=== PATIENT | male | born 1940 | race Caucasian/White ===

== ENCOUNTER 2022-07-01 19:38 | Inpatient (IN) | payer OTHER, MEDICARE ==
--- OUTSIDE RECORDS SUMMARY | 2022-07-01 19:43 | XMS REPORT | Continuity of Care Document ---
:1940 Author Organization [facility] t Address [address] [place] [address] Care Team Providers Name Role Phone Referral, Self Primary Care Physician Unavailable John Galindo Attending Clinician Unavailable SISSON_C Attending Clinician Unavailable Filippo DELVALLE, Jose Alberto Perkins Attending Clinician [phone] Sal DELVALLE, Arsen Damon Attending Clinician [phone] KNOW, DOES_NOT Admitting Clinician Unavailable SISSON_C Admitting Clinician Unavailable Payers Payer Name Policy Type Policy Number Effective Date Expiration Date Alyse krishna MEDICARE PART A AND [id number] 1997 B 00:00:00 MEDICARE B-[place]: [id number] 1997 [employer] 00:00:00 [facility] [id number] 2021 OPTIONS (MEDICARE 00:00:00 SUPPLEMENT) Problems Condition Condition Condition Status Onset Resolution Last Treating Co mments Source Name Details Category Date Date Treatment Clinician Date Aneurysm Aneurysm Disease Active 2016-05 [facility] artery, artery, 0-26 [facility] popliteal popliteal 00:00: of 00 Medicin e Chronic Chronic Disease Active 2016-05 [facility] obstructiv obstructiv 0-26 [facility] e e 00:00: of pulmonary pulmonary 00 Medi adonis disease disease e PAD PAD Disease Active [facility] (periphera (periphera 4-24 Co llege l artery l artery 00:00: of disease) disease) 00 Medici n (HCCode) (HCCode) e 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 4-24 College aneurysm aneurysm 00:00: of 00 Medicin e S/P S/P Disease Active [facility] femoral-po femoral-po 4-24 [facility] l[facility] pliteal pliteal 00:00: of bypass bypass 00 Medicin surgery surgery e PAD PAD Disease Active [facility] (periphera (periphera 4-24 Co llege l artery l artery 00:00: of disease) disease) 00 Medici n e 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 rectum/co kamilla HIGH HIGH Disease Active [facility] CHOLESTERO CHOLESTERO Co llege L L of Medicin e Esophageal Esophageal Disease Active [facility] Th[facility]bus Thrombus Disease Active Overview: [facility] g of this of note Medicin might be e different from the original. 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 Medicin e Atrial Atrial Disease Active [facility] fibrillati fibrillati Co llege on on of Medicin e Peptic Peptic Disease Active [facility] ulcer ulcer [place] disease disease of Medicin e Allergies, Adverse Reactions, Alerts Allergy Allergy Status Severity Reaction(s) Onset Inactive Treating Comm ents Source Name Type Date Date Clinician No Known DA Active [facility] 2019-05 [facility] [place] [facility]: [address] No Known DA Active U 2019-05 [facility] [place] [facility]: [address] Social History Social Habit Start Date Stop Date Quantity Comments Source History of tobacco Cigarette Smoker [facility] use of Medicine Exposure to Not sure [facility] SARS-CoV-2 (event) of Med icine Alcohol intake 2022-04-07 2022-04-07 Current [facility] 00:00:00 00:00:00 non-drinker of of Medicin e alcohol (finding) Cigarettes smoked 2021-04-22 2021-04-22 [facility] current (pack per 00:00:00 00:00:00 of Medi cine day) - Reported Cigarette 2021-04-22 2021-04-22 [facility] pack-years 00:00:00 00:00:00 of Medicine Tobacco use and 2021-04-22 2021-04-22 Former smokeless [facility] exposure 00:00:00 00:00:00 tobacco user of Medicine Tobacco Comment 2009-05-01 2009-05-01 used to smoke [facility] [place] [facility] 00:00:00 00:00:00 ppd of Medicine Sex Ass[birth year] [facility] 00:00:00 00:00:00 of Medicine Smoking Status Start Date Stop Date Source Ex-smoker 2021-04-22 00:00:00 2021-04-22 00:00:00 [facility] olehge of Medicine Current every day 2020-02-14 00:00:00 [facility] of smoker Medicine Medications Ordered Filled Start Stop Current Ordering Indication Dosage Frequency Signature Comments Components Source Medication Medication Date Date Medication? Clinician (SIG) Name Name Toddalog 40 Kenalog 40 2021-05 No Kenalog 40 [place] mg/mL mg/mL 2-29 mg/mL [facility] suspension suspension 15:39: suspension ty for for 43 for Hospita injectionTa injectionTa injectionT l ke 40 mg by ke 40 mg by anila 40 mg Clinics injection injection by route. route. injection route. ceftriaxone ceftriaxone 2021-05 No ceftriaxon [place] 1 gram 1 gram 2-29 e 1 gram [facility] solution solution 15:39: solution t y for for 00 for Hospita injectionTa injectionTa injectionT l ke 1 g by ke 1 g by anila 1 g by Clinics injection injection injection route. route. route. warfarin 2021-05 1{tbl} Take 1 [facility] (COUMADIN) 06-23 Tablet by Col lege 6 MG tablet 15:23: 00:00 mouth of 11 :00 daily. Medicin Coumadin e 6/7 mg tamsulosin 2021-05 Yes .4mg Take 0.4 [place] valdo (FLOMAX) 1-28 mg by College 0.4 MG 16:00: mouth of capsule 37 daily. Medicin e gemfibrozil 2021-05 Yes 600mg Take 600 [facility] (LOPID) 600 1-28 mg by [place] MG tablet 16:00: mouth 2 of 37 times Medicin daily. e digoxin 2021-05 Yes [id number] 125ug Take 125 [facility] (LANOXIN) 1-28 mcg by College 0.125 MG 16:00: mouth of tablet 37 daily. Medicin e Aspirin 325 2021-05 Yes [id number] 100mg Take 100 [facility] MG TBEC 1-28 mg by College 16:00: mouth. of 37 Medicin e metoprolol 2021-05 Yes [id number] 50mg Take 50 mg [facility] (TOPROL-XL) -28 by mouth [facility]i [facility] 50 MG XL 16:00: daily. of tablet 37 Medicin e Omeprazole 2021-05 Yes Take by [facility] 20 MG TBEC -28 mouth. College 16:00: of 37 Medicin e losartan 2021-05 Yes 50mg Take 50 mg [place] valdo (COZAAR) 50 -28 by mouth [facility]i [facility] MG tablet 16:00: daily. of 37 Medicin e gabapentin 2021-05 Yes 300mg Take 300 [facility] (NEURONTIN) 1-28 mg by [place] 300 MG 16:00: mouth 3 of capsule 37 times Medicin daily. e finasteride 2021-05 Yes 5mg Take 5 mg [facility] (PROSCAR) 5 -28 by mouth [facility]i [facility] MG tablet 16:00: daily. of 37 Medicin e fenofibrate 2021-05 Yes 145mg Take 145 [facility] (TRICOR) 1-28 mg by College 145 MG 16:00: mouth of tablet 37 daily. Medicin e folic acid 2021-05 Yes Take by [facility] 800 MCG 1-28 mouth. College TABS 16:00: of 37 Medicin e glimepiride 2021-05 Yes 2mg Take 2 mg [facility] (AMARYL) 2 1-28 by mouth Colle ge MG tablet 16:00: every of 37 morning. Medicin e Apixaban 2021-05 Yes Take by [facility] (ELIQUIS) 5 1-28 mouth two Col lege MG TABS 16:00: times of 37 daily. Medicin e hydrocodone 2021-05 Yes 1{tbl} Take 1 [facility] -acetaminop 1-28 Tablet by Col lege hen (NORCO) 16:00: mouth of 10-325 MG 37 every 4 Medicin per tablet hours as e needed. docusate 2021-05 Yes 100mg Take 100 [facility] sodium 1-28 mg by [place] (COLACE) 16:00: mouth four of 100 MG 37 times Medicin capsule daily. e [place]-3-aci 2021-05 Yes 1{capsu Take 1 [facility] d Ethyl 1-28 le} capsule by Colleg e Esters 1 g 16:00: mouth of CAPS 37 daily. Medicin e zolpidem 2021-05 Yes 1{tbl} Take 1 [facility] (AMBIEN) 10 1-28 Tablet by Col lege MG tablet 16:00: mouth at of 37 bedtime. Medicin e valsartan 2021-05 Yes 1{tbl} Take 1 [facility] (DIOVAN) 80 1-28 Tablet by Col lege MG tablet 16:00: mouth of 37 daily. Medicin e [place]-3-aci 2020-05 Yes 1{capsu Take 1 [facility] Ethyl 2-13 le} capsule by Colleg e [place] 14:58: mouth of (LOVAZA) 1 16 daily. Medicin g CAPS e zolpidem 2020-05 Yes 1{tbl} Take 1 [facility] (AMBIEN) 10 2-13 Tablet by Col lege MG tablet 14:58: mouth at of 16 bedtime. Medicin e valsartan 2020-05 Yes 1{tbl} Take 1 [facility] (DIOVAN) 80 2-13 Tablet by Col lege MG tablet 14:58: mouth of 16 daily. Medicin e docusate 2020-05 Yes 100mg Take 100 [facility] sodium 2-13 mg by [place] (COLACE) 14:58: mouth four of 100 MG 15 times Medicin capsule daily. e hydrocodone 2020-05 Yes 1{tbl} Take 1 [facility] -acetaminop 2-13 Tablet by Col bernarda guzman (NORCO) 14:48: mouth of 10-325 MG 08 every 4 Medicin per tablet hours as e needed. warfarin 2020-05 Yes 1{tbl} Take 1 [facility] (COUMADIN) 2-13 Tablet by Juli [facility] 6 MG tablet 14:48: mouth of 07 daily. Medicin Coumadin e 6/7 mg gemfibrozil 2020-05 Yes 600mg Take 600 [facility] (LOPID) 600 2-13 mg by [place] MG tablet 11:08: mouth 2 of 29 times Medicin daily. e digoxin 2020-05 Yes [id number] 125ug Take 125 [facility] (LANOXIN) 2-13 mcg by College 0.125 MG 11:08: mouth of tablet 29 daily. Medicin e Aspirin 325 2020-05 Yes [id number] 100mg Take 100 [facility] MG TBEC 2-13 mg by College 11:08: mouth. of Medicin e metoprolol 2020-05 Yes [id number] 50mg Take 50 mg [facility] (TOPROL-XL) 2-13 by mouth [facility] 50 MG XL 11:08: daily. of tablet 29 Medicin e losartan 2020-05 Yes 50mg Take 50 mg [place] valdo (COZAAR) 50 2-13 by mouth [facility] MG tablet 11:08: daily. of Medicin e gabapentin 2020-05 Yes 300mg Take 300 [facility] (NEURONTIN) 2-13 mg by [place] 300 MG 11:08: mouth 3 of capsule 29 times Medicin daily. e finasteride 2020-05 Yes 5mg Take 5 mg [facility] (PROSCAR) 5 2-13 by mouth [facility] MG tablet 11:08: daily. of 29 Medicin e fenofibrate 2020-05 Yes 145mg Take 145 [facility] (TRICOR) 2-13 mg by [place] 145 MG 11:08: mouth of tablet 29 daily. Medicin e folic acid 2020-05 Yes Take by [facility] 800 MCG 2-13 mouth. College TABS 11:08: of 29 Medicin e glimepiride 2020-05 Yes 2mg Take 2 mg [facility] (AMARYL) 2 2-13 by mouth Colle ge MG tablet 11:08: every of 29 morning. Medicin e Apixaban 2020-05 Yes Take by [facility] (ELIQUIS) 5 2-13 mouth two Col lege MG TABS 11:08: times of 29 daily. Medicin e tamsulosin 2020-05 Yes .4mg Take 0.4 [place] [facility] (FLOMAX) 2-13 mg by College 0.4 MG 11:08: mouth of capsule 29 daily. Medicin e gabapentin 2020-05 Yes 400mg Take 400 [facility] (NEURONTIN) 1-22 mg by College 400 MG 00:00: mouth of capsule 00 daily. Medicin e gabapentin 2020-05 Yes 400mg Take 400 [facility] (NEURONTIN) 1-22 mg by [facility] 400 MG 00:00: mouth of capsule 00 daily. Medicin e digoxin 2019-05 Yes [id number] 125ug Take 125 [facility] (LANOXIN) 0-05 mcg by College 0.125 MG 17:22: mouth of tablet 04 daily. Medicin e Aspirin 325 2019-05 Yes [id number] 100mg Take 100 [facility] MG TBEC 0-05 mg by College 17:22: mouth. of Medicin e metoprolol 2019-05 Yes [id number] 50mg Take 50 mg [facility] (TOPROL-XL) 0-05 by mouth [facility] 50 MG XL 17:22: daily. of tablet Medicin e Omeprazole 2019-05 Yes Take by [place] 20 MG TBEC 0-05 mouth. College 17:22: of 04 Medicin e losartan 2019-05 Yes 50mg Take 50 mg [place] valdo (COZAAR) 50 0-05 by mouth [facility] MG tablet 17:22: daily. of Medicin e gabapentin 2019-05 Yes 300mg Take 300 [facility] (NEURONTIN) 0-05 mg by College 300 MG 17:22: mouth 3 of capsule 04 times Medicin daily. e finasteride 2019-05 Yes 5mg Take 5 mg [facility] (PROSCAR) 5 0-05 by mouth [facility] MG tablet 17:22: daily. of Medicin e fenofibrate 2019-05 Yes 145mg Take 145 [facility] (TRICOR) 0-05 mg by [place] 145 MG 17:22: mouth of tablet 04 daily. Medicin e folic acid 2019-05 Yes Take by [facility] 800 MCG 0-05 mouth. College TABS 17:22: of 04 Medicin e glimepiride 2019-05 Yes 2mg Take 2 mg [facility] (AMARYL) 2 0-05 by mouth Colle ge MG tablet 17:22: every of 04 morning. Medicin e tamsulosin 2019-05 Yes .4mg Take 0.4 [place] valdo (FLOMAX) 0-05 mg by College 0.4 MG 17:22: mouth of capsule 04 daily. Medicin e gemfibrozil 2019-05 Yes 600mg Take 600 [facility] (LOPID) 600 0-05 mg by [place] MG tablet 17:22: mouth 2 of 04 times Medicin daily. e warfarin 2019-05 2020- No [id number] 5mg Take 5 mg [facility] (COUMADIN) 0-05 10-05 by mouth [facility] 5 MG tablet 17:22: 00:00 daily. of 04 :00 Medicin e pantoprazol 2019-05- No [id number] 40mg Take 40 mg [facility] e 0-05 10-05 by mouth College (PROTONIX) 17:22: 00:00 daily. of 40 MG 01 :00 Medicin tablet e Diltiazem 2019-05 2020- No Take by [facility] HCl 120 MG 0-05 10-05 mouth. Colleg e TABS 17:21: 00:00 of 58 :00 Medicin e hydrocodone 2019-05 2020- No 1{tbl} Take 1 Tab [facility] -acetaminop 0-05 10-05 by mouth Col lege hen 17:21: 00:00 every 6 of (LORCET) 52 :00 hours as Medicin 10-650 MG needed for e per tablet Pain. dutaseride 2019-05 2020- No .5mg Take 0.5 [facility] (AVODART) 0-05 10-05 mg by College 0.5 MG 17:21: 00:00 mouth of capsule 49 :00 daily. Medicin e ezetimibe 2019-05 2020- No 10mg Take 10 mg [facility] (ZETIA) 10 0-05 10-05 by mouth [facility] MG tablet 17:21: 00:00 daily. of 49 :00 Medicin e Omeprazole 2019-05 Yes Take by [facility] 20 MG TBEC 0-05 mouth. College 12:22: of 04 Medicin e dutaseride 2018-05 Yes .5mg Take 0.5 [place] [facility] (AVODART) 0-07 mg by College 0.5 MG 20:49: mouth of capsule 31 daily. Medicin e tamsulosin 2018-05 Yes .4mg Take 0.4 [place] [facility]do (FLOMAX) 0-07 mg by College 0.4 MG 20:49: mouth of capsule 31 daily. Medicin e ezetimibe 2018-05 Yes 10mg Take 10 mg [facility] (ZETIA) 10 0-07 by mouth Colle ge MG tablet 20:49: daily. of 31 Medicin e gemfibrozil 2018-05 Yes 600mg Take 600 [facility] (LOPID) 600 0-07 mg by College MG tablet 20:49: mouth 2 of 31 times Medicin daily. e hydrocodone 2018-05 Yes 1{tbl} Take 1 Tab [facility] -acetaminop 0-07 by mouth [facility] hen 20:49: every 6 of (LORCET) 31 hours as Medicin 10-650 MG needed for e per tablet Pain. digoxin 2018-05 Yes [id number] 125ug Take 125 [facility] (LANOXIN) 0-07 mcg by College 0.125 MG 20:49: mouth of tablet 31 daily. Medicin e Aspirin 325 2018-05 Yes [id number] 100mg Take 100 [facility] MG TBEC 0-07 mg by College 20:49: mouth. of 31 Medicin e pantoprazol 2018-05 Yes [id number] 40mg Take 40 mg [facility] e 0-07 by mouth [place] (PROTONIX) 20:49: daily. of 40 MG 31 Medicin tablet e Diltiazem 2018-05 Yes Take by [facility] r HCl 120 MG 0-07 mouth. College TABS 20:49: of 31 Medicin e warfarin 2018-05 Yes [id number] 5mg Take 5 mg [facility] (COUMADIN) 0-07 by mouth Colle ge 5 MG tablet 20:49: daily. of 31 Medicin e metoprolol 2018-05 Yes [id number] 50mg Take 50 mg [facility] (TOPROL-XL) 0-07 by mouth [facility] 50 MG XL 20:49: daily. of tablet 31 Medicin e Omeprazole 2018-05 Yes Take by [facility] 20 MG TBEC 0-07 mouth. College 20:49: of 31 Medicin e losartan 2018-05 Yes 50mg Take 50 mg [place] valdo (COZAAR) 50 0-07 by mouth [facility] MG tablet 20:49: daily. of Medicin e gabapentin 2018-05 Yes 300mg Take 300 [facility] (NEURONTIN) 0-07 mg by [place] 300 MG 20:49: mouth 3 of capsule 31 times Medicin daily. e finasteride 2018-05 Yes 5mg Take 5 mg [facility] (PROSCAR) 5 0-07 by mouth [facility] MG tablet 20:49: daily. of Medicin e fenofibrate 2018-05 Yes 145mg Take 145 [facility] (TRICOR) 0-07 mg by [place] 145 MG 20:49: mouth of tablet 31 daily. Medicin e folic acid 2018-05 Yes Take by [facility] 800 MCG 0-07 mouth. [place] TABS 20:49: of Medicin e glimepiride 2018-05 Yes 2mg Take 2 mg [facility] (AMARYL) 2 0-07 by mouth Colle ge MG tablet 20:49: every of 31 morning. Medicin e digoxin 250 digoxin 250 No digoxin [place] mcg (0.25 mcg (0.25 250 mcg Co mmuni mg) tablet mg) tablet (0.25 mg) ty TAKE 1 TAKE 1 tablet Hospita TABLET BY TABLET BY TAKE 1 l MOUTH ONCE MOUTH ONCE TABLET BY Clinics DAILY DAILY MOUTH ONCE DAILY Eliquis 5 Eliquis 5 No Eliquis 5 Reading mg tablet mg tablet mg tablet Communi TAKE 1 TAKE 1 TAKE 1 ty TABLET BY TABLET BY TABLET BY Hospita MOUTH TWICE MOUTH TWICE MOUTH l DAILY DAILY TWICE Clinics DAILY fenofibrate fenofibrate No fenofibrat [facility] nanocrystal nanocrystal e C ommuni lized 145 lized 145 nanocrysta ty mg tablet mg tablet llized 145 Hospita TAKE 1 TAKE 1 mg tablet l TABLET BY TABLET BY TAKE 1 Cli nics MOUTH ONCE MOUTH ONCE TABLET BY DAILY DAILY MOUTH ONCE DAILY finasteride finasteride No finasterid [facility] 5 mg tablet 5 mg tablet e 5 mg Communi TAKE 1 TAKE 1 tablet ty TABLET BY TABLET BY TAKE 1 Hos antonino MOUTH ONCE MOUTH ONCE TABLET BY l DAILY DAILY MOUTH ONCE Clinics DAILY furosemide furosemide No furosemide [facility] 20 mg 20 mg 20 mg Communi tablet TAKE tablet TAKE tablet ty 1 TABLET BY 1 TABLET BY TAKE 1 Hospita MOUTH ONCE MOUTH ONCE TABLET BY l DAILY DAILY MOUTH ONCE Clinics DAILY gabapentin gabapentin No gabapentin [facility] 400 mg 400 mg 400 mg Communi capsule capsule capsule ty TAKE 1 TAKE 1 TAKE 1 Hospita CAPSULE BY CAPSULE BY CAPSULE BY l MOUTH THREE MOUTH THREE MOUTH Clinics TIMES DAILY TIMES DAILY THREE TIMES DAILY glimepiride glimepiride No glimepirid [facility] 4 mg tablet 4 mg tablet e 4 mg Communi TAKE 1 TAKE 1 tablet ty TABLET BY TABLET BY TAKE 1 Hos antonino MOUTH ONCE MOUTH ONCE TABLET BY l DAILY WITH DAILY WITH MOUTH ONCE Clinics BREAKFAST BREAKFAST DAILY WITH OR THE OR THE BREAKFAST FIRST MAIN FIRST MAIN OR THE MEAL OF THE MEAL OF THE FIRST MAIN DAY DAY MEAL OF THE DAY ipratropium ipratropium No ipratropiu [facility] 0.5 0.5 m 0.5 Communi mg-albutero mg-albutero mg-albuter ty l 3 mg (2.5 l 3 mg (2.5 ol 3 mg Hospita mg base)/3 mg base)/3 (2.5 mg l mL mL base)/3 mL Clinics nebulizatio nebulizatio nebulizati n soln USE n soln USE on soln 1 VIAL IN 1 VIAL IN USE 1 VIAL NEBULIZER 4 NEBULIZER 4 IN TIMES DAILY TIMES DAILY NEBULIZER 4 TIMES DAILY Kenalog 40 Kenalog 40 No 40mg Kenalog 40 [place] mg/mL mg/mL mg/mL Communi suspension suspension suspension ty for for for Hospita injection injection injection l Take 40 mg Take 40 mg Take 40 mg Clinics by by by injection injection injection route. route. route. levofloxaci levofloxaci No 1 Q1D levofloxac [place] n 750 mg n 750 mg in 750 mg Co mmuni tablet Take tablet Take tablet ty 1 tablet 1 tablet Take 1 Hospi ta every day every day tablet l by oral by oral every day Clin ics route for 5 route for 5 by oral days. days. route for 5 days. losartan 25 losartan 25 No losartan [place] mg tablet mg tablet 25 mg Comm uni TAKE 1 TAKE 1 tablet ty TABLET BY TABLET BY TAKE 1 Hos antonino MOUTH ONCE MOUTH ONCE TABLET BY l DAILY DAILY MOUTH ONCE Clinics DAILY losartan 50 losartan 50 No losartan [place] mg tablet mg tablet 50 mg Comm uni tablet ty Hospita l Clinics metoprolol metoprolol No metoprolol [place] succinate succinate succinate Communi ER 200 mg ER 200 mg ER 200 mg ty tablet,exte tablet,exte tablet,ext Hospita nded nded ended l release 24 release 24 release 24 Clinics hr TAKE 1 hr TAKE 1 hr TAKE 1 TABLET BY TABLET BY TABLET BY MOUTH IN MOUTH IN MOUTH IN THE MORNING THE MORNING THE AND TAKE AND TAKE MORNING 1/2 1/2 AND TAKE (ONE-HALF) (ONE-HALF) 1/2 TABLET IN TABLET IN (ONE-HALF) THE EVENING THE EVENING TABLET IN THE EVENING omeprazole omeprazole No omeprazole [place] 20 mg 20 mg 20 mg Communi capsule,del capsule,del capsule,de ty ayed ayed layed Hospita release release release l TAKE 1 TAKE 1 TAKE 1 Clinics CAPSULE BY CAPSULE BY CAPSULE BY MOUTH ONCE MOUTH ONCE MOUTH ONCE DAILY DAILY DAILY prednisone prednisone No prednisone [facility] 10 mg 10 mg 10 mg Communi tablet TAKE tablet TAKE tablet ty 1 TABLET BY 1 TABLET BY TAKE 1 Hospita MOUTH ONCE MOUTH ONCE TABLET BY l DAILY IN DAILY IN MOUTH ONCE C linics THE MORNING THE MORNING DAILY IN THE MORNING prednisone prednisone No 1 BID prednisone [facility] 20 mg 20 mg 20 mg Communi tablet Take tablet Take tablet ty 1 tablet 1 tablet Take 1 Hospi ta twice a day twice a day tablet l by oral by oral twice a Clinic s route for 5 route for 5 day by days. days. oral route for 5 days. prednisone prednisone No prednisone [facility] 5 mg tablet 5 mg tablet 5 mg C ommuni TAKE 1 TAKE 1 tablet ty TABLET BY TABLET BY TAKE 1 Hos antonino MOUTH ONCE MOUTH ONCE TABLET BY l DAILY IN DAILY IN MOUTH ONCE C linics THE MORNING THE MORNING DAILY IN THE MORNING tamsulosin tamsulosin No tamsulosin [facility] 0.4 mg 0.4 mg 0.4 mg Communi capsule capsule capsule ty TAKE 1 TAKE 1 TAKE 1 Hospita CAPSULE BY CAPSULE BY CAPSULE BY l MOUTH ONCE MOUTH ONCE MOUTH ONCE Clinics DAILY DAILY DAILY Tessalon Tessalon No 1capsul TID Tessalon [place] Perles 100 Perles 100 e(s) Perles 100 Communi mg capsule mg capsule mg capsule ty Take 1 Take 1 Take 1 Hospita capsule 3 capsule 3 capsule 3 l times a day times a day times a Clinics by oral by oral day by route as route as oral route needed for needed for as needed 7 days. 7 days. for 7 days. acetaminoph acetaminoph No acetaminop [facility] en 300 en 300 hen 300 Communi mg-codeine mg-codeine mg-codeine ty 30 mg 30 mg 30 mg Hospita tablet TAKE tablet TAKE tablet l 1 TABLET BY 1 TABLET BY TAKE 1 Clinics MOUTH THREE MOUTH THREE TABLET BY TIMES DAILY TIMES DAILY MOUTH NEEDED NEEDED THREE FOR JOINT FOR JOINT TIMES PAIN. PAIN. DAILY NEEDED FOR JOINT PAIN. ceftriaxone ceftriaxone No 1g ceftriaxon [place] 1 gram 1 gram e 1 gram Communi solution solution solution ty for for for Hospita injection injection injection l Take 1 g by Take 1 g by Take 1 g Clinics injection injection by route. route. injection route. cephalexin cephalexin No cephalexin [place] 500 mg 500 mg 500 mg Communi capsule capsule capsule ty TAKE 1 TAKE 1 TAKE 1 Hospita CAPSULE BY CAPSULE BY CAPSULE BY l MOUTH EVERY MOUTH EVERY MOUTH Clinics 12 HOURS 12 HOURS EVERY 12 FOR 14 DAYS FOR 14 DAYS HOURS FOR 14 DAYS Vital Signs Vital Name Observation Time Observation Value Comments Source BP Diastolic 2022-05-08 00:00:00 63 mm[Hg] [facility] BP Systolic 2022-05-08 00:00:00 106 mm[Hg] [facility] Body Weight 2022-05-08 00:00:00 2560 [oz_av] [facility] Systolic blood 2022-04-07 22:01:00 138 mm[Hg] [facility] Diastolic blood 2022-04-07 22:01:00 73 mm[Hg] [facility] Heart rate 2022-04-07 22:01:00 71 /min [facility] Respiratory rate 2022-04-07 22:01:00 16 /min [facility] Body height 2022-04-07 22:01:00 177.8 cm [facility] Body weight 2022-04-07 22:01:00 81.647 kg [facility] BMI 2022-04-07 22:01:00 25.83 kg/m2 [facility] Systolic blood 2021-04-22 17:06:00 155 mm[Hg] [facility] Diastolic blood 2021-04-22 17:06:00 83 mm[Hg] [facility] Heart rate 2021-04-22 17:06:00 74 /min [facility] Body weight 2021-04-22 17:06:00 86.183 kg [facility] BMI 2021-04-22 17:06:00 27.26 kg/m2 [facility] Systolic blood 2020-02-13 17:20:00 155 mm[Hg] [facility] pressure Medicine Diastolic blood 2020-02-13 17:20:00 77 mm[Hg] [facility] of pressure Medicine Heart rate 2020-02-13 17:20:00 66 /min [facility] Body height 2020-02-13 17:20:00 177.8 cm [facility] Body weight 2020-02-13 17:20:00 86.183 kg [facility] BMI 2020-02-13 17:20:00 27.26 kg/m2 [facility] Systolic blood 2020-02-13 17:20:00 155 mm[Hg] [facility] of pressure Medicine Diastolic blood 2020-02-13 17:20:00 77 mm[Hg] [facility] pressure Medicine Heart rate 2020-02-13 17:20:00 66 /min [facility] Body height 2020-02-13 17:20:00 177.8 cm [facility] Body weight 2020-02-13 17:20:00 86.183 kg [facility] BMI 2020-02-13 17:20:00 27.26 kg/m2 [facility] Systolic blood 2019-02-14 20:49:00 133 mm[Hg] [facility] of pressure Medicine Diastolic blood 2019-02-14 20:49:00 65 mm[Hg] [facility] pressure Medicine Heart rate 2019-02-14 20:49:00 59 /min [facility] Systolic blood 2019-02-14 20:49:00 133 mm[Hg] [facility] pressure Medicine Diastolic blood 2019-02-14 20:49:00 65 mm[Hg] [facility] pressure Medicine Heart rate 2019-02-14 20:49:00 59 /min [facility] Procedures Procedure Date / Time Performed Performing Clinician Sour e XR, chest, 2 view 2022-05-08 00:00:00 [facility] Plan of Care Planned Activity Planned Date Details Comments Source Diagnostic Test 2022-05-08 respiratory [facility] Pending 00:00:00 pathogens DNA [facility] RNA panel, PCR, nasopharynx [code = respiratory pathogens DNA and RNA panel, PCR, nasopharynx] Future Scheduled 2022-04-22 COVID-19 Vaccine [employer] [facility] 14:33:22 (#1) [code = of Medicine COVID-19 Vaccine (#1)] Future Scheduled 2022-04-22 Pneumococcal 65+ (1 [employer] [facility] 14:33:22 - PCV) [code = of Medicine Pneumococcal 65+ (1 - PCV)] Future Scheduled 2022-04-22 TETANUS SHOT [employer] [facility] 14:33:22 (ADULT) [code = of Medicine TETANUS SHOT (ADULT)] Future Scheduled 2022-04-22 ZOSTER VACCINE (1 [employer] [facility] 14:33:22 of 2) [code = of Medicine ZOSTER VACCINE (1 of 2)] Future Scheduled 2022-04-22 MEDICARE AWV [employer] [facility] 14:33:22 (Initial) [code = of Medicin e MEDICARE AWV (Initial)] Future Scheduled 2022-04-22 BMI FOLLOW UP PLAN [facility] Test 14:33:22 [code = BMI FOLLOW of Medici ne UP PLAN] Future Scheduled 2022-04-22 FLU VACCINE > 6 [employer] [facility] 14:33:22 MONTHS [code = FLU of Medici ne VACCINE > 6 MONTHS] Future Scheduled 2022-04-22 FALL SCREEN [code = [employer] [facility] 14:33:22 FALL SCREEN] of Medicine Future Scheduled 2022-04-07 US ARTERIAL LEGS 1 Occurrences [employer] Test 16:24:26 BILATERAL [code = starting of Medicin e 73573-5] 04/07/2022 until 04/07/2023 Future Scheduled 2021-04-22 US ARTERIAL LEGS 1 Occurrences [employer] [facility] 11:37:50 BILATERAL [code = starting of Medicin e 13125-9] 04/22/2021 until 04/22/2022 Future Scheduled 2021-04-22 Pneumococcal 65+ (1 [employer] [facility] 11:07:34 of 4 - PCV13) [code of Medic ine = Pneumococcal 65+ (1 of 4 - PCV13)] Future Scheduled 2021-04-22 COVID-19 Vaccine [employer] [facility] 11:07:34 (1) [code = of Medicine COVID-19 Vaccine (1)] Future Scheduled 2021-04-22 TETANUS SHOT [employer] [facility] 11:07:34 (ADULT) [code = of Medicine TETANUS SHOT (ADULT)] Future Scheduled 2021-04-22 ZOSTER VACCINE (1 [employer] Test 11:07:34 of 2) [code = of Medicine ZOSTER VACCINE (1 of 2)] Future Scheduled 2021-04-22 MEDICARE AWV [employer] [facility] 11:07:34 (Initial) [code = of Medicin e MEDICARE AWV (Initial)] Future Scheduled 2021-04-22 FALL SCREEN [code = [employer] [facility] 11:07:34 FALL SCREEN] of Medicine Future Scheduled 2021-04-22 FLU VACCINE > 6 [employer] [facility] 11:07:34 MONTHS [code = FLU of Medici ne VACCINE > 6 MONTHS] Future Scheduled 2021-04-22 BMI FOLLOW UP PLAN [employer] [facility] 11:07:34 [code = BMI FOLLOW of Medici ne UP PLAN] Future Scheduled MEDICARE AWV [code [employer] [facility] = MEDICARE AWV] of Medicine Future Scheduled TETANUS SHOT [employer] [facility] (ADULT) [code = of Medicine TETANUS SHOT (ADULT)] Future Scheduled BMI FOLLOW UP PLAN [employer] [facility] [code = BMI FOLLOW of Medici ne UP PLAN] Future Scheduled PNEUMOVAX >=65 [employer] [facility] (PPSV23) [code = of Medicine PNEUMOVAX >=65 (PPSV23)] Future Scheduled PREVNAR >= 65 [employer] [facility] (PCV13) [code = of Medicine PREVNAR >= 65 (PCV13)] Future Scheduled FLU VACCINE > 6 [employer] [facility] MONTHS [code = FLU of Medici ne VACCINE > 6 MONTHS] Future Scheduled FALL SCREEN [code = [employer] [facility] FALL SCREEN] of Medicine Future Scheduled TETANUS SHOT [employer] [facility] (ADULT) [code = of Medicine TETANUS SHOT (ADULT)] Future Scheduled BMI FOLLOW UP PLAN [facility] Test [code = BMI FOLLOW of Medici ne UP PLAN] Future Scheduled ZOSTER VACCINE (1 [facility] Test of 2) [code = of Medicine ZOSTER VACCINE (1 of 2)] Future Scheduled MEDICARE AWV [employer] [facility] (Initial) [code = of Medicin e MEDICARE AWV (Initial)] Future Scheduled FALL SCREEN [code = [employer] [facility] FALL SCREEN] of Medicine Future Scheduled PNEUMOVAX >=65 [employer] [facility] (PPSV23) [code = of Medicine PNEUMOVAX >=65 (PPSV23)] Future Scheduled FLU VACCINE > 6 [employer] [facility] MONTHS [code = FLU of Medici ne VACCINE > 6 MONTHS] Future Scheduled US ARTERIAL LEGS 1 Occurrences [facility] Test BILATERAL [code = starting of Medicin e 80505-3] 02/13/2020 until 02/12/2022 Future Scheduled US ARTERIAL LEGS 1 Occurrences [employer] [facility] BILATERAL [code = starting of Medicin e 42924-0] 02/14/2019 until 02/16/2020 Encounters Start End Encounter Admission Attending Care Care Encounter Source Date/Time Date/Time Type Type Clinicians Facility Department ID 2021-06-13 Outpatient MDA MDA [id number] 17:37:28 Androsso stephanie 2020-02-23 Inpatient EL Pepper, [facility]G [id number] [facility] 14:30:00 John Edmonds [facility] 2022-05-08 2022-05-08 Outpatient MADELEINEDuyen [facility] [id number] [place] 00:00:00 00:00:00 [facility] 2022-05-08 2022-05-08 [facility] [place] [id number] [place] 00:00:00 00:00:00 Maria Esther [place] [facility] MSN, ECONOMICS ANALYST, Hospital - ty RUBY ENGINEER-C: [address] [facility], [facility] s [address], [facility] [address], [place] MSN, RUBY ENGINEER-C [id number] , Ph. 2022-04-07 2022-04-07 Office CLARK Barkley [id number] [facility] 15:30:00 16:31:46 Visit Jose Alberto AMBULATOR [id number] College Gregorio Y [id number] of [phone] [facility] adonis 825 e 2022-04-07 2022-04-[address] [facility] [id number] [facility] 13:56:19 16:27:52 [facility]in e 2021-04-22 2021-04-22 Office CLARK Huang [id number] [facility] 11:15:00 11:47:02 Visit Arsen AMBULATOR [id number] College Nelson Y 0.2.7.2.686 of [id number] [facility] 825 e 2021-04-22 2021-04-[address] [facility] [id number] [facility] 09:18:21 11:12:41 [facility]in e 2020-02-13 2020-02-13 Office CLARK Huang [id number] 10:15:45 13:00:35 Visit Arsen AMBULATOR [id number] [place] Y [id number] [id number] 2020-02-13 2020-02-13 Office CLARK Huang [id number] [facility] 10:15:45 13:00:35 Visit Arsen AMBULATOR [id number] College Nelson Y [id number] of [id number] [facility] 825 e 2019-02-14 2019-02-15 Office CLARK Huang [id number] 13:31:18 11:25:05 Visit Arsen AMBULATOR [id number] Nelson Y [id number] [id number] 2019-02-14 2019-02-15 Office CLARK Huang [id number] [facility] 13:31:18 11:25:05 Visit Arsen AMBULATOR [id number] College Nelson Y [id number] of [id number] [facility] 820 e Results Test Description Test Time Test Comments Results Result Comments Source BASIC METABOLIC PANEL 2020-02-23 13:02:00 Test Item Value Reference Range Interpretation Comme nts SODIUM (test code = NA) 139 MMOL/L 137-145 N POTASSIUM (test code = K) 4.2 MMOL/L 3.5-5.1 N CHLORIDE (test code = CL) 101 MMOL/L 98-107 N CARBON DIOXIDE (test code = CO2) 29 MMOL/L 22-30 N ANION GAP (test code = GAP) 13 MMOL/L 14-24 L GLUCOSE (test code = GLU) 107 MG/DL 74-106 H BLOOD UREA NITROGEN (test code = 16 MG/DL 9-20 N BUN) GLOMERULAR FILTRATION RATE (test > 60 Reporting units: ml/min/1.73 code = GFR) m2 (Modified MD RD Formula)Referen ce Range: > or = 60 ml/min/1.7 3 m2 CREATININE (test code = CREAT) 0.90 MG/DL 0.66-1.25 N CALCIUM (test code = CA) 9.5 MG/DL 8.4-10.2 N [id number] 13:02:00 Test Item Value Reference Range Interpretation Comments MAGNESIUM (test code = MAG) 2.0 MG/DL 1.6-2.3 N BASIC METABOLIC [id number] 13:01:00 Test Item Value Reference Range Interpretation Comments SODIUM (test code = 139 MMOL/L 137-145 N NA) POTASSIUM (test code = 4.2 MMOL/L 3.5-5.1 N K) CHLORIDE (test code = 101 MMOL/L 98-107 N CL) CARBON DIOXIDE (test 29 MMOL/L 22-30 N code = CO2) ANION GAP (test code = 13 MMOL/L 14-24 L GAP) GLUCOSE (test code = MG/DL 74-106 GLU) BLOOD UREA NITROGEN 16 MG/DL 9-20 N (test code = BUN) GLOMERULAR FILTRATION > 60 Report ing units: RATE (test code = GFR) ml/mi n/1.73 m2 (Modified MDRD Formula)Referen ce Range: > or = 6 0 ml/min/1.73 m2 CREATININE (test code 0.90 MG/DL 0.66-1.25 N = CREAT) CALCIUM (test code = MG/DL 8.7-9.7 CA) [id number] 13:01:00 Test Item Value Reference Range Interpretation Comments MAGNESIUM (test code = MAG) MG/DL 1.6-2.3 BASIC METABOLIC [id number] 13:01:00 Test Item Value Reference Range Interpretation Comments SODIUM (test code = 139 MMOL/L 137-145 N NA) POTASSIUM (test code = 4.2 MMOL/L 3.5-5.1 N K) CHLORIDE (test code = 101 MMOL/L 98-107 N CL) CARBON DIOXIDE (test 29 MMOL/L 22-30 N code = CO2) ANION GAP (test code = 13 MMOL/L 14-24 L GAP) GLUCOSE (test code = 107 MG/DL 74-106 H GLU) BLOOD UREA NITROGEN 16 MG/DL 9-20 N (test code = BUN) GLOMERULAR FILTRATION > 60 Report ing units: RATE (test code = GFR) ml/mi n/1.73 m2 (Modified MDRD Formula)Referen ce Range: > or = 6 0 ml/min/1.73 m2 CREATININE (test code 0.90 MG/DL 0.66-1.25 N = CREAT) CALCIUM (test code = MG/DL 8.7-9.7 CA) [id number] 13:01:00 Test Item Value Reference Range Interpretation Comments MAGNESIUM (test code = MAG) MG/DL 1.6-2.3 BASIC METABOLIC [id number] 13:01:00 Test Item Value Reference Range Interpretation Comments SODIUM (test code = 139 MMOL/L 137-145 N NA) POTASSIUM (test code = 4.2 MMOL/L 3.5-5.1 N K) CHLORIDE (test code = 101 MMOL/L 98-107 N CL) CARBON DIOXIDE (test 29 MMOL/L 22-30 N code = CO2) ANION GAP (test code = 13 MMOL/L 14-24 L GAP) GLUCOSE (test code = 107 MG/DL 74-106 H GLU) BLOOD UREA NITROGEN 16 MG/DL 9-20 N (test code = BUN) GLOMERULAR FILTRATION > 60 Report ing units: RATE (test code = GFR) ml/mi n/1.73 m2 (Modified MDRD Formula)Referen ce Range: > or = 6 0 ml/min/1.73 m2 CREATININE (test code 0.90 MG/DL 0.66-1.25 N = CREAT) CALCIUM (test code = 9.5 MG/DL 8.4-10.2 N CA) [id number] 13:01:00 Test Item Value Reference Range Interpretation Comments MAGNESIUM (test code = MAG) MG/DL 1.6-2.3 BASIC METABOLIC [id number] 12:58:00 Test Item Value Reference Range Interpretation Comments SODIUM (test code = NA) 139 MMOL/L 137-145 N POTASSIUM (test code = K) 4.2 MMOL/L 3.5-5.1 N CHLORIDE (test code = CL) 101 MMOL/L 98-107 N CARBON DIOXIDE (test code = CO2) MMOL/L 22-30 GLUCOSE (test code = GLU) MG/DL 74-106 BLOOD UREA NITROGEN (test code = MG/DL 9-20 BUN) GLOMERULAR FILTRATION RATE (test code = GFR) CREATININE (test code = CREAT) MG/DL 0.66-1.25 CALCIUM (test code = CA) MG/DL 8.7-9.7 [id number] 12:58:00 Test Item Value Reference Range Interpretation Comments MAGNESIUM (test code = MAG) MG/DL 1.6-2.3 PROTHROMBIN [id number] 12:48:00 Test Item Value Reference Range Interpretation Comments PROTHROMBIN TIME 12.6 SECONDS 9.4-12.5 H PATIENT (test code = PTP) INTERNATIONAL NORMAL 1.1 The INR is to be RATIO (test code = used only for INR) monitoring oral anticoagulantth erap y. INDICATION I NR VALUE ---- ---- ---- -------1. Prophylaxis, de ep venous thrombos is, including high risk surgery. 2.0 - 3.0 2. Prophylaxis, deep venous thrombosis, hip surgery, treatm ent for deep venous thrombosis or pulmonary prevention of systemic emboli sm in patients wit h valvular heart disease, atrial fibrillation, tissue heart va lve, or acute myocar dial infarction. 2. 0 - 3.0 3. Pharmaceutical Compounding Supervisor al prosthesis hear t valves, recurre nt systemic emboli sm. 3.0 - 4.5 PTT [id number] 12:48:00 Test Item Value Reference Range Interpretation Comments PTT ACTIVATED (test code = APTT) 30.2 SECONDS 25.1-36.5 N CBC W/AUTO [id number] 12:40:00 Test Item Value Reference Range Interpretation Comments WHITE BLOOD CELL (test code = 5.6 K/MM3 3.8-9.8 N WBC) RED BLOOD CELL (test code = 5.47 M/MM3 3.95-5.67 N RBC) HEMOGLOBIN (test code = HGB) 12.9 G/DL 12.4-16.7 N HEMATOCRIT (test code = HCT) 43.9 % 35.9-49.5 N MEAN CELL VOLUME (test code = 80 fL 81.7-96.1 L MCV) MEAN CELL HGB (test code = MCH) 23.6 pg 27.6-33.2 L MEAN CELL HGB CONCETRATION 29.4 % 32.9-35.5 L (test code = MCHC) RED CELL DISTRIBUTION WIDTH 18.6 % 12.1-15.2 H (test code = RDW) PLATELET COUNT (test code = 166 K/MM3 129-368 N PLT) MEAN PLATELET VOLUME (test code 10.5 fl 7.4-10.4 H = MPV) NEUTROPHIL % (test code = NT%) 51.7 % 43-75 N IMMATURE GRANULOCYTE % (test 0.4 % 0.0-2.0 N code = IG%) LYMPHOCYTE % (test code = LY%) 34.2 % 14-44 N MONOCYTE % (test code = MO%) 11.8 % 4-13 N EOSINOPHIL % (test code = EO%) 1.4 % 0-6 N BASOPHIL % (test code = BA%) 0.5 % 0-2 N NUCLEATED RBC % (test code = 0.0 % 0-1.0 N NRBC%) NEUTROPHIL # (test code = NT#) 2.90 K/mm3 2.0-7.6 N IMMATURE GRANULOCYTE # (test 0.02 x10 3/uL 0-0.03 N code = IG#) LYMPHOCYTE # (test code = LY#) 1.92 K/mm3 1.0-3.8 N MONOCYTE # (test code = MO#) 0.66 K/mm3 0.1-0.8 N EOSINOPHIL # (test code = EO#) 0.08 K/mm3 0.0-0.2 N BASOPHIL # (test code = BA#) 0.03 K/mm3 0.0-0.2 N NUCLEATED RBC # (test code = 0.00 K/mm3 0.0-0.1 N NRBC#) COVID 19 Asymptomatic IH [id number] 12:15:00 Test Item Value Reference Range Interpretation Comments COVID 19 NEGATIVE Negative "Negative resul ts from Asymptomatic IH AG patients with symptom (test code = onset beyondfiv e days, COVNONPUIAG) should be treat ed as presumptive, andconfirmation with a molecular assay , if necessary forpa tient management may be performed. Nega tive results do notr ule out COVID-19 and sh ould not be used as the sole basisfor treatm ent or patient managem ent decisions, includinginfect ion control decisio ns. Negative result s should beconsidered in the context of a pa tients recent exposure s,history, and the presenc e of clinical signs and symptomsconsist ent with COVID-19.This t est detects both vi able andnon-viable S ARS-CoV and SARS CoV-2. Test performance dep endson the amount of virus (antigen) in the sample."
[2022-07-01] MEDS ORDERED: D10W 250 ML IV ONE ×2 (19:55→21:30)
[2022-07-01 20:28] LABS: Absolute Lymphocytes (CBC) 1.3 K/uL (0.7-4.9); Hematocrit 31.9 % (39.6-49.0); Lymphocytes % 15.2 % (15.3-44.8); MCV 73.4 fL (80-100); MPV 7.4 fL (7.6-11.3); RBC Red Blood Cell Count 4.34 M/uL (4.33-5.43)
[2022-07-01 20:46] LABS: Troponin High Sensitivity 40.3 pg/mL (<58.9)
--- NOTE | 2022-07-01 21:31 | RAD REPORT ---
EXAM DESCRIPTION: Garyt Single View07/01/2022 8:54 pm CLINICAL HISTORY: ams COMPARISON: Chest Pa And Lat (2 Views) dated 08/31/2020; Chest Single View dated 12/27/2018; Chest Sin gle View dated 12/26/2018; CHEST PA AND LAT 2 VIEW dated 07/11/2015 TECHNIQUE: Portable AP view of the chest. FINDINGS: The lungs are clear. No pneumothorax or effusion, although the left costophrenic angles ex cluded which limits evaluation. The cardiomediastinal contours are unremarkable. Left chest wall dual lead pacer/AICD in place. IMPRESSION: No acute cardiopulmonary process.
--- NOTE | 2022-07-01 21:39 | RAD REPORT ---
EXAM DESCRIPTION: CT - Abdomen Pelvis W Contrast - 07/01/2022 9:17 pm CLINICAL HISTORY: Abdominal pain. COMPARISON: 04/20/2008 TECHNIQUE: Biphasic, helical CT imaging of the abdomen and pelvis was performed following intravenou s administration of 92 mL Isovue-300. All CT scans are performed using dose optimization technique as appropriate and may include automated exposure control or mA/KV adjustment according to patient size. FINDINGS: Peripheral left basal rounded focus of opacification, likely related to atelectasis. . The liver, spleen, and pancreas show no suspicious findings. Gallbladder and biliary tree are also wi thout suspicious finding. Symmetric renal function is seen with no hydronephrosis or suspicious renal mass. Bilateral cortical fluid density lesions present, suggestive of cysts. Cortical thinning suggestive of focal scarring al chely the medial right lower pole. Sequelae of left hemicolectomy, with left lower quadrant end colostomy. No dilated bowel loops or bow el wall thickening. No free air, free fluid or inflammatory stranding. No hernia, mass or bulky lymph adenopathy. The urinary bladder is without significant finding. No suspicious bony findings. Fusiform infrarenal abdominal aortic aneurysm, decreased in caliber since the 2007 exam, measuring up to 2.8 x 2.5 centimeter distally, with organization of the mural thrombus. IMPRESSION: No acute abnormality within the abdomen and pelvis. Infrarenal abdominal aortic aneurysm, markedly decreased in caliber since 2008. Other incidental findings, as above.
[2022-07-01] MEDS ORDERED: D5 0.45 NS 1,000 ML IV ONE (21:51)
--- NOTE | 2022-07-01 23:34 | ER ---
Nurse's Notes [facility] Name: Kt Church Age: 82 yrs Sex: Male : 1940 Arrival Date: 07/01/2022 Time: 19:42 Bed 5 Private MD: Diagnosis: Altered mental status, unspecified;Other hypoglycemia Presentation: 07/01 19:42 Chief complaint: EMS states: "We got called out for possible stroke, he was thrashing tw5 all around his blood sugar was 34. We gave 250 D10 IV. It was 115 during transport and checked it again it was 100. He has a history HTN, Diabetes, COPD, Colon cancer, and he has colostomy bag from that. Family says he has not been eating a whole lot, vital signs were stable. His last BP 148/92. He does have a history of AFIB and a defibrillator from that.". Risk Assessment: Do you want to hurt yourself or someone else? Patient reports no desire to harm self or others. Onset of symptoms is unknown. 19:42 Method Of Arrival: [facility] tw5 19:42 Acuity: CIARAN 3 tw5 19:56 Coronavirus screen: Vaccine status: Patient reports receiving the 2nd dose of the covid tw5 vaccine. Moderna. Ebola Screen: Patient negative for fever greater than or equal to 101.5 degrees Fahrenheit, and additional compatible Ebola Virus Disease symptoms Patient denies exposure to infectious person. Patient denies travel to an Ebola-affected area in the 21 days before illness onset. Initial Sepsis Screen: Does the patient meet any 2 criteria? RR > 20 per min. HR > 90 bpm. Does the patient have a suspected source of infection? No. Patient's initial sepsis screen is negative. Triage Assessment: 19:59 General: Appears in no apparent distress. Behavior is appropriate for age. General: tw5 Reports "I am just cold". Pain: Denies pain. Historical: - Allergies: 19:59 No Known Allergies; tw5 - Home Meds: 20:01 see list on paper chart 07/01/2022 [Active]; tw5 - PMHx: 19:59 abdominal aortic aneurysm; Atrial Fib; Diabetes - NIDDM; dylipidemia; lumbosacral tw5 radiculitis; popliteal aneurysm; rectal cancer 1995; - PSHx: 19:59 colon cancer surgery x2; AAA repair; Carotid endarterectomy; Colostomy; tw5 - Immunization history:: Flu vaccine is up to date. - Social history:: Smoking status: Patient/guardian denies using tobacco, the patient reports quitting approximately 11 years ago. Screenin:03 [facility] ED Fall Risk Assessment (Adult) History of falling in the last 3 months, tw5 including since admission. Abuse screen: Denies threats or abuse. Denies injuries from another. Abuse screen: Denies threats or abuse. Nutritional screening: No deficits noted. Tuberculosis screening: No symptoms or risk factors identified. Assessment: 20:03 General: Appears in no apparent distress. Behavior is calm, cooperative. Neuro: Level tw5 of Consciousness is awake, alert, obeys commands. Cardiovascular: Capillary refill < 3 seconds is brisk in bilateral fingers. Respiratory: Airway is patent Trachea deviated to right Respiratory effort is even, unlabored, Breath sounds are clear bilaterally. 21:50 Reassessment: Patient denies pain at this time. Patient states feeling better. Patient tw5 states symptoms have improved. 22:22 Reassessment: Patient appears in no apparent distress at this time. Patient and/or jb4 family updated on plan of care and expected duration. Pain level reassessed. Patient is alert, oriented x 3, equal unlabored respirations, skin warm/dry/pink. 23:13 Reassessment: Patient appears in no apparent distress at this time. Patient and/or jb4 family updated on plan of care and expected duration. Pain level reassessed. Patient is alert, oriented x 3, equal unlabored respirations, skin warm/dry/pink. Vital Signs: 19:56 BP 135 / 82; Pulse 101; Resp 28; Temp 97.4; Pulse Ox 98% on R/A; Weight 65.77 kg; tw5 Height 5 ft. 10 in. (177.80 cm); Pain 0/10; 21:50 BP 124 / 40; Pulse 72; Resp 18; Pulse Ox 100% on R/A; tw5 22:00 BP 128 / 75; Pulse 77; Resp 16; Pulse Ox 98% on R/A; jb4 23:13 BP 105 / 42; Pulse 72; Resp 16; Pulse Ox 98% on R/A; jb4 19:56 Body Mass Index 20.81 (65.77 kg, 177.80 cm) tw5 ED Course: 19:42 Patient arrived in ED. tw5 19:44 Triage completed. tw5 19:51 Abdulaziz Diego MD is Attending Physician. kdr 19:52 Jyothi Diaz is Primary Nurse. tw5 19:59 Arm band placed on. tw5 20:03 Patient has correct armband on for positive identification. Placed in gown. Bed in low tw5 position. Call light in reach. Side rails up X 1. Side rails up X2. Adult w/ patient. Client placed on continuous cardiac and pulse oximetry monitoring. NIBP monitoring applied. Door closed. Noise minimized. Lights dimmed. Warm blanket given. Verbal reassurance given. 20:03 Maintain EMS IV. Dressing intact. Good blood return noted. Site clean \\T\\ dry. Gauge \\T\\ tw 5 site: 20 G LAC. 20:20 Basic Metabolic Panel Sent. tw 20:20 CBC with Diff Sent. tw 20:20 NT PRO-BNP Sent. tw 20:20 Troponin HS Sent. tw 20:20 Initial lab(s) drawn, by me, sent to lab. EKG done, by ED staff, reviewed by Abdulaziz twSamantha Diego MD. Patient maintains SpO2 saturation greater than 95% on room air. 23:31 Ishaan Phillip MD is Hospitalizing Provider. kdr 07/02 11:27 No provider procedures requiring assistance completed. IV discontinued, intact, kc6 bleeding controlled, No redness/swelling at site. Pressure dressing applied. Administered Medications: 07/01 19:58 Drug: D10 in Water [2 mL/kg] 250 ml Route: IVP; Site: left antecubital; jb4 21:51 Follow up: Response: No adverse reaction tw5 21:26 Drug: D10 in Water [2 mL/kg] 250 ml Route: IVP; Site: left antecubital; tw5 21:51 Follow up: Response: No adverse reaction 21:51 Drug: D5-1/2 NS 1000 ml Route: IV; Rate: 75 ml/hr; Site: left antecubital; tw5 07/02 04:19 Drug: D10 in Water [2 mL/kg] 250 ml Route: IVP; Site: right antecubital; jb4 Medication: 07/01 20:03 VIS not applicable for this client. tw5 Point of Care Testing: Blood Glucose: 19:58 Blood Glucose: 58 mg/dL; jb4 19:58 Provider notified, see CORIN jb4 Ranges: Outcome: 23:33 Decision to Hospitalize by Provider. kdr 07/02 11:27 Discharged to home via wheelchair, with family. kc6 Condition: stable Discharge instructions given to patient, Instructed on discharge instructions, follow up and referral plans. medication usage, Demonstrated understanding of instructions, follow-up care, medications. 11:27 Patient left the ED. kc6 Signatures: Abdulaziz Diego MD MD kdr Carlos Lewis, RN RN jb4 Jyothi Diaz tw5 Priscilla Mascorro RN RN kc6
--- NOTE | 2022-07-01 23:34 | EDPHYS ---
Physician Documentation [facility] Name: Kt Church Age: 82 yrs Sex: Male : 1940 Arrival Date: 07/01/2022 Time: 19:42 Bed 5 Private MD: ED Physician Abdulaziz Diego HPI: 07/02 02:46 This 82 yrs old Male presents to ER via EMS with complaints of Low Blood Sugar. kdr 02:46 Family noted that the patient suddenly became unresponsive and was flailing as he was kdr laying on the couch. Patient has no recollection of any of this. EMS was called at the in the course of their evaluation discovered that his blood glucose was 34. He was given 250 cc of D10 IV. They rechecked his blood sugar during transport it was 115. On arrival in the ED, his blood sugar was 100. Patient is on medication for glucose control which was given to him by his family so they are certain there was not a medication there. Patient is currently at his baseline. He is awake alert appropriate. He has no recollection of the preceding events. He denies any focal illness at this time and is nontoxic. Onset: The symptoms/episode began/occurred just prior to arrival. Severity of symptoms: At their worst the symptoms were mild in the emergency department the symptoms are unchanged. The patient has not experienced similar symptoms in the past. The patient has not recently seen a physician. Historical: - Allergies: 07/01 19:59 No Known Allergies; tw5 - Home Meds: 20:01 see list on paper chart 07/01/2022 [Active]; tw5 - PMHx: 19:59 abdominal aortic aneurysm; Atrial Fib; Diabetes - NIDDM; dylipidemia; lumbosacral tw5 radiculitis; popliteal aneurysm; rectal cancer 1995; - PSHx: 19:59 colon cancer surgery x2; AAA repair; Carotid endarterectomy; Colostomy; tw5 - Immunization history:: Flu vaccine is up to date. - Social history:: Smoking status: Patient/guardian denies using tobacco, the patient reports quitting approximately 11 years ago. ROS: 07/02 02:46 Constitutional: Negative for fever, chills, and weight loss, Eyes: Negative for injury, kdr pain, redness, and discharge, ENT: Negative for injury, pain, and discharge, Neck: Negative for injury, pain, and swelling, Cardiovascular: Negative for chest pain, palpitations, and edema, Respiratory: Negative for shortness of breath, cough, wheezing, and pleuritic chest pain, Abdomen/GI: Negative for abdominal pain, nausea, vomiting, diarrhea, and constipation, Back: Negative for injury and pain, : Negative for injury, bleeding, discharge, and swelling, MS/Extremity: Negative for injury and deformity, Skin: Negative for injury, rash, and discoloration, Psych: Negative for depression, anxiety, suicide ideation, homicidal ideation, and hallucinations, Allergy/Immunology: Negative for hives, rash, and allergies, Endocrine: Negative for neck swelling, polydipsia, polyuria, polyphagia, and marked weight changes, Hematologic/Lymphatic: Negative for swollen nodes, abnormal bleeding, and unusual bruising. Neuro: Positive for altered mental status, loss of consciousness, weakness, Patient was very agitated until he had the D10. Exam: 02:46 Constitutional: This is a well developed, well nourished patient who is awake, alert, kdr and in no acute distress. Head/Face: Normocephalic, atraumatic. Eyes: Pupils equal round and reactive to light, extra-ocular motions intact. Lids and lashes normal. Conjunctiva and sclera are non-icteric and not injected. Cornea within normal limits. Periorbital areas with no swelling, redness, or edema. Neck: Trachea midline, no thyromegaly or masses palpated, and no cervical lymphadenopathy. Supple, full range of motion without nuchal rigidity, or vertebral point tenderness. No Meningismus. Chest/axilla: Normal chest wall appearance and motion. Nontender with no deformity. No lesions are appreciated. Cardiovascular: Regular rate and rhythm with a normal S1 and S2. No gallops, murmurs, or rubs. Normal PMI, no JVD. No pulse deficits. Respiratory: Lungs have equal breath sounds bilaterally, clear to auscultation and percussion. No rales, rhonchi or wheezes noted. No increased work of breathing, no retractions or nasal flaring. Abdomen/GI: Soft, non-tender, with normal bowel sounds. No distension or tympany. No guarding or rebound. No evidence of tenderness throughout. Back: No spinal tenderness. No costovertebral tenderness. Full range of motion. Skin: Warm, dry with normal turgor. Normal color with no rashes, no lesions, and no evidence of cellulitis. MS/ Extremity: Pulses equal, no cyanosis. Neurovascular intact. Full, normal range of motion. Neuro: Awake and alert, GCS 15, oriented to person, place, time, and situation. Cranial nerves II-XII grossly intact. Motor strength 5/5 in all extremities. Sensory grossly intact. Cerebellar exam normal. Normal gait. Psych: Awake, alert, with orientation to person, place and time. Behavior, mood, and affect are within normal limits. Vital Signs: 07/01 19:56 BP 135 / 82; Pulse 101; Resp 28; Temp 97.4; Pulse Ox 98% on R/A; Weight 65.77 kg; tw5 Height 5 ft. 10 in. (177.80 cm); Pain 0/10; 21:50 BP 124 / 40; Pulse 72; Resp 18; Pulse Ox 100% on R/A; tw5 22:00 BP 128 / 75; Pulse 77; Resp 16; Pulse Ox 98% on R/A; jb4 23:13 BP 105 / 42; Pulse 72; Resp 16; Pulse Ox 98% on R/A; jb4 19:56 Body Mass Index 20.81 (65.77 kg, 177.80 cm) tw5 MDM: 23:33 Patient medically screened. kdr 07/02 02:46 Data reviewed: vital signs, nurses notes, lab test result(s), radiologic studies. kdr Management of patient was discussed with the following: Primary Care Provider: Kenji. I considered the following discharge prescriptions or medication management in the emergency department Medications were administered in the Emergency Department. See JUL. 07/01 19:55 Order name: Basic Metabolic Panel kdr 07/01 19:55 Order name: CBC with Diff kdr 07/01 19:55 Order name: NT PRO-BNP kdr 07/01 19:55 Order name: Troponin HS kdr 07/01 20:00 Order name: Glucose, Ancillary Testing; Complete Time: 20:36 EDMS 07/01 20:29 Order name: CBC with Automated Diff; Complete Time: 20:36 EDMS 07/01 20:46 Order name: Basic Metabolic Panel; Complete Time: 21:31 EDMS 07/01 20:46 Order name: Troponin High Sensitivity; Complete Time: 21:31 EDMS 07/01 20:46 Order name: NT PRO-BNP; Complete Time: 21:31 EDMS 07/01 21:36 Order name: Glucose, Ancillary Testing; Complete Time: 23:14 EDMS 07/01 23:35 Order name: Glucose, Ancillary Testing EDMS 07/02 01:03 Order name: Glucose, Ancillary Testing EDMS 07/02 01:58 Order name: SARS RAPID tw5 07/02 02:33 Order name: Glucose, Ancillary Testing EDMS 07/01 19:55 Order name: XRAY Chest (1 view) kdr 07/01 20:35 Order name: CT Abd/Pelvis - IV Contrast Only kdr 07/01 21:32 Order name: RAD; Complete Time: 21:33 EDMS 07/01 21:40 Order name: CT; Complete Time: 23:14 EDMS 07/02 02:53 Order name: SARS-COV-2 Antigen Rapid EDMS 07/02 04:21 Order name: Glucose, Ancillary Testing EDVA 07/02 05:15 Order name: Glucose, Ancillary Testing EDVA 07/02 06:17 Order name: Glucose, Ancillary Testing EDVA 07/02 07:22 Order name: Glucose, Ancillary Testing EDVA 07/02 08:19 Order name: Glucose, Ancillary Testing EDMS 07/02 08:49 Order name: Glucose, Ancillary Testing EDMS 07/02 10:31 Order name: Glucose, Ancillary Testing EDVA 07/01 19:55 Order name: EKG; Complete Time: 19:56 kdr 07/01 19:55 Order name: Cardiac monitoring; Complete Time: 19:57 kdr 07/01 19:55 Order name: EKG - Nurse/Tech; Complete Time: 20:16 kdr 07/01 19:55 Order name: IV Saline Lock; Complete Time: 19:57 kdr 07/01 19:55 Order name: Labs collected and sent; Complete Time: 20:20 kdr 07/01 19:55 Order name: O2 Per Protocol; Complete Time: 19:57 kdr 07/01 19:55 Order name: O2 Sat Monitoring; Complete Time: 19:57 kdr Administered Medications: 07/01 19:58 Drug: D10 in Water [2 mL/kg] 250 ml Route: IVP; Site: left antecubital; jb4 21:51 Follow up: Response: No adverse reaction tw5 21:26 Drug: D10 in Water [2 mL/kg] 250 ml Route: IVP; Site: left antecubital; tw 21:51 Follow up: Response: No adverse reaction 21:51 Drug: D5-1/2 NS 1000 ml Route: IV; Rate: 75 ml/hr; Site: left antecubital; tw07/02 04:19 Drug: D10 in Water [2 mL/kg] 250 ml Route: IVP; Site: right antecubital; jb4 Point of Care Testing: Blood Glucose: 07/01 19:58 Blood Glucose: 58 mg/dL; jb4 19:58 Provider notified, see MAR jb4 Ranges: Critical Glucose Levels:Adult <50 mg/dl or >400 mg/dl <40 mg/dl or >180 mg/dl Disposition Summary: 07/01/22 23:33 Hospitalization Ordered Hospitalization Status: Inpatient Admission kdr Provider: Ishaan Phillip Condition: Fair kdr Problem: new kdr Symptoms: have improved kdr Bed/Room Type: Standard kdr Location: [facility] HOLD(07/02/22 01:36) cg Room Assignment: ERHOLD-(07/02/22 01:36) cg Diagnosis - Altered mental status, unspecified kdr - Other hypoglycemia kdr Forms: - Medication Reconciliation Form kdr - SBAR form kdr Signatures: Dispatcher [employer] EDMS Abdulaziz Diego MD MD kdr Laura Mehta RN RN cg Carlos Lewis RN RN ata4 Jyothi Diaz tw5 Corrections: (The following items were deleted from the chart) 07/02 01:36 07/01 23:33 Telemetry/MedSurg (Inpatient) kdr cg 07/02 01:36 07/01 23:33 kdr cg
[2022-07-02] MEDS ORDERED: ACETAMINOPHEN 500 MG TAB PO PRN (01:26)
[2022-07-02] MEDS ORDERED: GLUCAGON 1 MG/VIAL IM PRN (01:26)
[2022-07-02] MEDS ORDERED: D50W 25 GM/50 ML SYRINGE IV PRN (01:26)
[2022-07-02] MEDS ORDERED: ONDANSETRON 4 MG/2 ML VIAL IV PRN (01:26)
[2022-07-02] MEDS ORDERED: D10W 125 ML IV PRN (01:42)
[2022-07-02] MEDS ORDERED: D5 0.45 NS 1,000 ML IV SCH (02:00)
[2022-07-02 02:14] VITALS: BMI 20.7
[2022-07-02 02:53] LABS: SARS-CoV-2 Antigen Rapid Res Negative (Negative)
[2022-07-02] MEDS ORDERED: D10W 250 ML IV ONE (04:18)
[2022-07-02] MEDS ORDERED: INSULIN -REGULAR HUMAN 50 UNIT/0.5 ML ML SQ SCH (07:30)
[2022-07-02 08:05] VITALS: BP 118/48
[2022-07-02 11:31] VITALS: TEMP 97.4
[2022-07-02 11:33] VITALS: O2SAT 98
--- NOTE | 2022-07-02 21:39 | P.SSS ---
Patient History Date of Service: 07/02/22 Reason for admission: LOW GLUCOSE History of Present Illness: MR. FUNEZ IS A FRAIL GM WITH A FIB, SEVERE DJD, VASCULAR DISEASE AND CHF COMES WITH CONFUSION, WAS FOUND TO HAVE GLUCOSEOF 26. HE HAS LOST WEIGHT AND DOES NOT EAT WELL NOW. Allergies No Known Allergies Allergy (Unverified 07/11/15 13:10) Home medications list reviewed: Yes Home Medications: Fenofibrate [Tricor*] 145 mg PO BEDTIME 07/11/15 Finasteride [Proscar*] 5 mg PO BEDTIME 07/11/15 Metoprolol Succinate [Toprol Xl*] 200 mg PO DAILY 07/11/15 Tamsulosin [Flomax*] 0.4 mg PO BEDTIME 07/11/15 Digoxin [Lanoxin*] 0.25 mg PO DAILY 06/23/18 Omeprazole 20 mg PO DAILY 06/23/18 Apixaban [Eliquis] 5 mg PO BID 12/27/18 Folic Acid 1 mg PO NOON 12/27/18 Gabapentin [Neurontin*] 400 mg PO TID 12/27/18 Losartan Potassium [Cozaar] 25 mg PO BEDTIME 12/27/18 Metoprolol Succinate [Toprol Xl] 100 mg PO BEDTIME 12/27/18 Umeclidinium Brm/Vilanterol Tr [Anoro Ellipta 62.5-25 Mcg INH] 1 each IH DAILYPRN PRN 12/27/18 methocarbamoL [Methocarbamol] 750 mg PO TID PRN 12/27/18 levoFLOXacin [Levaquin*] 500 mg PO DAILY #7 tab 12/28/18 - Past Medical/Surgical History Has patient received pneumonia vaccine in the past: Yes Diabetic: Yes -: A-fib -: prostate problem -: neuropathy -: hypertention -: GERD -: Diabetes -: arthritis -: cataracts -: graft to left leg -: colostomy -: coratid surgery -: aortic anurysm with graft -: cardiac stents - Family History Brother -: Heart disease, Hypertension, Lung disease, Cancer, Seizures, Kidney disease Mother -: Stroke - Social History Smoking Status: Former smoker Alcohol use: No CD- Drugs: No Caffeine use: No Review of Systems 10-point ROS is otherwise unremarkable Physical Examination - Vital Signs Temperature: 97.4 F Blood Pressure: 118/48 Pulse: 88 Respirations: 18 Pulse Ox (%): 97 - Physical Exam General: Oriented x3, Cachectic, Mild distress HEENT: Atraumatic, PERRLA, Mucous membr. moist/pink, EOMI, Sclerae nonicteric Neck: Supple, 2+ carotid pulse no bruit, No LAD, Without JVD or thyroid abnormality Respiratory: Clear to auscultation bilaterally, Normal air movement Cardiovascular: Regular rate/rhythm, Normal S1 S2 Gastrointestinal: Normal bowel sounds, No tenderness Musculoskeletal: No tenderness Integumentary: No rashes Neurological: Normal gait, Normal speech, Normal strength at 5/5 x4 extr, Normal tone, Normal affect Lymphatics: No axilla or inguinal lymphadenopathy - Diagnosis (Problem(s)) (1) Hypoglycemia Status: Acute Plan: STOP GLIMEPRIDE NOW THAT HE IS LOSING WEIGHT HE DOES NOT NEED GLIMEPRIDE ANY LONGER. (2) COPD (chronic obstructive pulmonary disease) Status: Chronic Plan: HE IS GRADULALY WORSENING WITH AGING. HE WANTS COMFORT CARE HE WILL BE A GOOD HOSPICE CANDIDATE FAMILY WILL THINK AND LET ME KNOW. (3) A-fib Status: Chronic Qualifiers: - Disposition Disposition: ROUTINE DISCHARGE Condition: SERIOUS
--- NOTE | 2022-07-03 16:33 | EKG ---
Test Date: 2022-07-01 Test Time: 20:11:11 [employer]: TW MEASUREMENT RESULTS: Intervals: Rate: 84 IA: QRSD: 104 QT: 352 QTc: 415 [place]: P: IA: QRS: 58 T: -78 INTERPRETIVE STATEMENTS: Atrial fibrillation Voltage criteria for left ventricular hypertrophy Possible Inferior infarct, age undetermined ST & T wave abnormality, consider lateral ischemia or digitalis effect Abnormal ECG Compared to ECG 12/26/2018 20:13:08 Left ventricular hypertrophy now present Right-axis deviation no longer present Incomplete right bundle-branch block no longer present Myocardial infarct finding still present ST (T wave) deviation still present Possible ischemia still present Electronically Signed On 07-03-22 16:30:22 [employer] by Chicho Paz
== END 2022-07-02 10:47 | disposition home or self-care (01) | DRG 638 ==
LOC: ER 19:38 → ERHOLD 07-02 01:32
PROVIDERS: ADMIT Internal Medicine; ATTEND Internal Medicine
DX: E11.649 Type 2 diabetes mellitus with hypoglycemia without coma (principal); R64 Cachexia; I48.91 Unspecified atrial fibrillation; J44.9 Chronic obstructive pulmonary disease, unspecified; E11.40 Type 2 diabetes mellitus with diabetic neuropathy, unspecified; I11.0 Hypertensive heart disease with heart failure; I50.9 Heart failure, unspecified; K21.9 Gastro-esophageal reflux disease without esophagitis; M19.90 Unspecified osteoarthritis, unspecified site; M51.17 Intervertebral disc disorders with radiculopathy, lumbosacral region; Z68.20 Body mass index [BMI] 20.0-20.9, adult; Z20.822 Contact with and (suspected) exposure to COVID-19; Z79.01 Long term (current) use of anticoagulants; Z79.899 Other long term (current) drug therapy; Z87.891 Personal history of nicotine dependence; Z85.048 Personal history of other malignant neoplasm of rectum, rectosigmoid junction, and anus; Z93.3 Colostomy status; Z95.5 Presence of coronary angioplasty implant and graft; Z82.49 Family history of ischemic heart disease and other diseases of the circulatory system; Z80.9 Family history of malignant neoplasm, unspecified; Z82.3 Family history of stroke; Z84.1 Family history of disorders of kidney and ureter
CPT/HCPCS: 36415; 71045; 74177; 80048; 82947; 83880; 84484; 85025; 87811; 93005; 99284; J7799; Q9967